=== PATIENT | female | born 1975 | race African-American/Black ===

== ENCOUNTER 2018-06-13 05:50 | Day surgery (SDC) | payer OTHER ==
[2018-05-03 16:19] VITALS: BMI 40.2
[2018-06-13] MEDS ORDERED: PROPOFOL 20 ML ONE (06:56)
[2018-06-13] MEDS ORDERED: MIDAZOLAM HCL 2 MG/2 ML SINGLE DOSE VIAL ONE ×2 (06:56→06:59)
[2018-06-13] MEDS ORDERED: LIDOCAINE HCL 2% (20ML MULTI-DOSE VIAL) NR ONE (07:15)
[2018-06-13] MEDS ORDERED: LIDOCAINE HCL 2% (50ML VIAL) NR ONE (07:34)
[2018-06-13] MEDS ORDERED: KETOROLAC TROMETHAMINE 30 MG/1 ML VIAL ONE (07:38)
[2018-06-13] MEDS ORDERED: ONDANSETRON 4 MG/2 ML VIAL ONE (07:38)
[2018-06-13] MEDS ORDERED: DEXAMETHASONE SOD PHOSPHATE 4 MG/1 ML VIAL ONE (07:38)
--- NOTE | 2018-06-13 08:08 | OP ---
DATE OF OPERATION: 06/13/2018 PREOPERATIVE DIAGNOSIS: Right trigger thumb. POSTOPERATIVE DIAGNOSIS: Right trigger thumb OPERATIVE PROCEDURE: Right trigger thumb release. SURGEON: Herminio Knight MD ANESTHESIA: Local with sedation. COMPLICATIONS: None. ESTIMATED BLOOD LOSS: Minimal. INDICATIONS FOR PROCEDURE: The patient is a 43-year-old female with the above fingers, indicated for operative treatment. The risks, benefits and alternatives were discussed with the patient at length and proper informed consent was obtained. DESCRIPTION OF PROCEDURE: After proper identification of the patient and correct operative site, the patient was brought to the operating room and placed supine on the table, with all bony prominences well-padded. Sedation and local anesthesia were given. The right upper extremity was prepped and draped in the usual sterile fashion. A well-padded tourniquet was placed after sterile prep. Esmarch bandage was used to exsanguinate the left upper extremity and tourniquet inflated to 250 mmHg. A transverse incision was made over the thumb A1 meliton. The incision was taken sharply through the skin, with blunt and sharp dissection through the subcutaneous tissues. The A1 meliton was identified and divided longitudinally. Flexion and extension of the thumb was no longer triggering. The wound was irrigated and repaired with a 5-0 fast-absorbing plain gut suture. Sterile dressings were placed. The patient was brought to the recovery room in stable condition. HERMINIO KNIGHT M.D. [id number]
[2018-06-13 08:50] VITALS: PULSE 82
[2018-06-13 09:06] VITALS: TEMP 97.5
[2018-06-13] MEDS ORDERED: ONDANSETRON 4 MG/2 ML VIAL IVPUSH PRN (09:40)
[2018-06-13] MEDS ORDERED: PROMETHAZINE HCL 25 MG/1 ML VIAL IVPUSH PRN (09:40)
[2018-06-13] MEDS ORDERED: oxyCODONE HCL 5 MG TABLET PO PRN ×2 (09:40)
[2018-06-13 10:23] VITALS: BP 151/91
== END 2018-06-13 11:05 | disposition home or self-care (01) ==
LOC: FASU 05:50
PROVIDERS: ATTEND Orthopaedic Surgery Hand Surgery
PROC: 0LN70ZZ Release Right Hand Tendon, Open Approach (ICD-10-PCS; principal; 2018-06-13 07:30)
DX: M65.311 Trigger thumb, right thumb (principal)
CPT/HCPCS: 81025; 94760